=== PATIENT | male | born 1985 | race African-American/Black ===

== ENCOUNTER 2024-10-22 18:54 | Emergency (ER) | payer SELFPAY ==
[~2024-10-22] VITALS: Ht 180.3 cm; Wt 85.0 kg
[2024-10-22 19:06] VITALS: BP 106/69; PULSE 120; RESP 18; TEMP 101; O2SAT 96
[2024-10-23] MEDS ORDERED: NITR-87 MT (02:16)
[2024-10-23 02:28] LABS: CLARITY URINE CLOUDY (CLEAR); COLOR URINE DARK YELLOW (YELLOW); GLUCOSE URINE NEGATIVE (NEGATIVE); KETONES URINE NEGATIVE (NEGATIVE); PH URINE 5.5 (4.5-8.0); PROTEIN URINE 3+ (NEGATIVE); SPECIFIC GRAVITY URINE 1.026 (1.005-1.030)
[2024-10-23 02:29] LABS: LEUKOCYTE ESTERASE URINE NEGATIVE (NEGATIVE); NITRITE URINE NEGATIVE (NEGATIVE); OCCULT BLOOD URINE TRACE (NEGATIVE)
[2024-10-23 02:45] LABS: RBC URINE 0-2 /hpf (0-2)
[2024-10-23 02:46] LABS: SQUAMOUS EPITHELIAL CELL URINE 1+ /lpf (RARE/1+)
[2024-10-23 02:49] LABS: BACTERIA URINE NONE SEEN
== END 2024-10-23 05:19 | disposition home or self-care (01) ==
LOC: ER 18:54
DX: N39.0 Urinary tract infection, site not specified (principal)
CPT/HCPCS: 81003; 99283